=== PATIENT | female | born 1960 | race Caucasian/White ===

== ENCOUNTER 2023-10-31 00:49 | Emergency (ER) | payer BC ==
[~2023-10-31] VITALS: Ht 160 cm; Wt 80.8 kg
[2023-10-31] MEDS ORDERED: LISINOPRIL20 MG (01:10)
[2023-10-31] MEDS ORDERED: HYDROCHLOROTH12.5 MG (01:10)
[2023-10-31 01:17] LABS: BASOPHILS 0.7 % (0-2); EOSINOPHILS 0.9 % (0-6); HEMATOCRIT 39.2 % (35.0-50.0); HEMOGLOBIN 13.8 g/dL (12.0-18.0); LYMPHOCYTES 29.1 % (24-44); MCH 32.5 (27-36); MCHC 35.1 g/dl (30-36); MCV 92.5 fl (81-99); MONOCYTES 5.8 % (0-12); NEUTROPHILS 63.5 % (39-80); PLATELET COUNT 414 K/uL (140-440); RBC 4.24 M/ul (4.3-5.7); RDW 12.6 (10.5-15.0)
[2023-10-31 01:34] LABS: ALBUMIN 3.8 g/dL (3.4-5.0); ALBUMIN/GLOBULIN RATIO 0.97 (1.1-2.4); ANION GAP 12.3 (7-21); BILIRUBIN, TOTAL 0.3 ng/dL (0.2-1.0); BUN/CREATININE RATIO 18.05 (6.0-28.6); CALCIUM 8.7 mg/dL (8.5-10.1); CREATININE, SERUM 0.72 mg/dL (0.55-1.02); MAGNESIUM 1.7 mg/dL (1.8-2.4); POTASSIUM 3.3 mmol/L (3.5-5.1); PROTEIN, TOTAL 7.7 g/dL (6.4-8.2)
[2023-10-31 01:44] LABS: BILIRUBIN, URINE NEGATIVE (negative); BLOOD/HGB, URINE NEGATIVE (Negative); KETONE, URINE TRACE (Negative); LEUK ESTERASE, URINE NEGATIVE (negative); NITRITE, URINE NEGATIVE (negative)
[2023-10-31 01:57] LABS: AMPHETAMINES, URINE NEGATIVE (NEGATIVE); BARBITURATES, URINE NEGATIVE (NEGATIVE); BENZODIAZEPINE, URINE NEGATIVE (NEGATIVE); BUPRENORPHINE, URINE NEGATIVE (NEGATIVE); CANNABINOID, URINE NEGATIVE (NEGATIVE); COCAINE, URINE NEGATIVE (NEGATIVE); ECSTASY, URINE NEGATIVE (NEGATIVE); FENTANYL, URINE NEGATIVE (NEGATIVE); METHADONE, URINE NEGATIVE (NEGATIVE); OPIATES, URINE NEGATIVE (NEGATIVE); OXYCODONE, URINE NEGATIVE (NEGATIVE); PHENCYCLIDINE, URINE NEGATIVE (NEGATIVE)
[2023-10-31 02:10] LABS: INFLUENZA B NAA NEGATIVE (NEGATIVE); RESPIRATORY SYNCYTIAL VIR NAA NEGATIVE (NEGATIVE)
[2023-10-31 03:16] VITALS: BP 131/81
--- NOTE | 2023-11-01 05:53 | EKG ---
[facility] [address] [facility] [place] [address] Signed Normal sinus rhythm Left bundle branch block Abnormal ECG No previous ECGs available Confirmed by ALONZO WHITE MD ([id number]) on 11/01/2023 5:53:45 AM Electronically Signed By: ALONZO WHITE 11/01/23 0553 PATIENT NAME: OVIDIO CLARK Electrocardiogram DATE OF : 64 PHYSICIAN: ALONZO WHITE REPORT #: [id number] REPORT IS CONFIDENTIAL AND NOT TO BE RELEASED WITHOUT AUTHORIZATION
== END 2023-10-31 03:18 | disposition home or self-care (01) ==
LOC: ED 00:49
PROVIDERS: Internal Medicine
DX: U07.1 COVID-19 (principal); R07.89 Other chest pain; R73.9 Hyperglycemia, unspecified; I10 Essential (primary) hypertension; I44.7 Left bundle-branch block, unspecified; Z79.899 Other long term (current) drug therapy
CPT/HCPCS: 36415; 71045; 80053; 80307; 81003; 83036; 83735; 84484; 85025; 87502; 93005; 93010; 99285-25; A9270; C9803; U0002

== ENCOUNTER 2025-02-27 21:15 | Emergency (ER) | payer BC ==
[~2025-02-27] VITALS: Ht 160 cm; Wt 81.2 kg
[~2025-02-27 21:15] MED LIST: HYDROCHLOROTH12.5 MG; LISINOPRIL20 MG
[2025-02-27 23:05] LABS: BASOPHILS 0.5 % (0-2); EOSINOPHILS 1.1 % (0-6); HEMATOCRIT 37.5 % (35.0-50.0); HEMOGLOBIN 13.4 g/dL (12.0-18.0); LYMPHOCYTES 35.8 % (24-44); MCH 32.2 (27-36); MCHC 35.8 g/dl (30-36); MONOCYTES 8.2 % (0-12); NEUTROPHILS 54.4 % (39-80); PLATELET COUNT 442 K/uL (140-440); RBC 4.17 M/ul (4.3-5.7); RDW 12.7 (10.5-15.0)
[2025-02-27 23:25] LABS: ALBUMIN 3.6 g/dL (3.4-5.0); ALBUMIN/GLOBULIN RATIO 1.03 (1.1-2.4); ANION GAP 11.1 (7-21); BILIRUBIN, TOTAL 0.4 mg/dL (0.2-1.0); BUN/CREATININE RATIO 12.98 (6.0-28.6); CALCIUM 8.5 mg/dL (8.5-10.1); CREATININE, SERUM 0.77 mg/dL (0.55-1.02); POTASSIUM 3.1 mmol/L (3.5-5.1); PROTEIN, TOTAL 7.1 g/dL (6.4-8.2)
[2025-02-27] MEDS ORDERED: POTASSIUM CHLORIDE 10 MEQ TABCR PO ONE (23:45)
[2025-02-28] MEDS ORDERED: BENZONATATE100 MG PO (00:58)
[2025-02-28] MEDS ORDERED: GUAIFENESIN/CODEINE 60 ML HOME.PACK PO ONE (01:00)
[2025-02-28] MEDS ORDERED: methylPREDNISolone 4 MG HOME.PACK PO ONE (01:00)
[2025-02-28 01:16] VITALS: BP 139/72
--- NOTE | 2025-02-28 13:14 | EKG ---
[facility] [address] [facility] [place] [address] Signed Normal sinus rhythm Left bundle branch block Abnormal ECG When compared with ECG of 31-OCT-2023 01:04, No significant change was found Confirmed by Oumar Todd MD ([id number] on 02/28/2025 1:14:20 PM Electronically Signed By: OUMAR TODD MD 02/28/25 1314 PATIENT NAME: OVIDIO CLARK ANUJ Electrocardiogram DATE OF : 64 PHYSICIAN: OUAMR TODD MD REPORT #: [id number] REPORT IS CONFIDENTIAL AND NOT TO BE RELEASED WITHOUT AUTHORIZATION
== END 2025-02-28 01:14 | disposition home or self-care (01) ==
LOC: ED 21:15
PROVIDERS: Family Medicine
DX: J40 Bronchitis, not specified as acute or chronic (principal); I10 Essential (primary) hypertension; Z88.8 Allergy status to other drugs, medicaments and biological substances; Z79.899 Other long term (current) drug therapy
CPT/HCPCS: 36415; 71045; 80053; 83735; 84484; 85025; 93005; 93010; 99284-25; A9270; U0002